=== PATIENT | male | born 1985 | race Caucasian/White ===

== ENCOUNTER 2020-12-29 10:48 | Emergency (ER) | payer SELFPAY ==
[~2020-12-29] VITALS: Ht 170.2 cm; Wt 65.8 kg
[2020-12-29] MEDS ORDERED: KETOROLAC TROMETHAMINE INJ 30 MG/ML VIAL IM ONE (11:30)
[2020-12-29] MEDS ORDERED: KETOROLAC TROMETHAMINE INJ 30 MG/ML VIAL ONE (11:32)
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
[2020-12-29 13:39] VITALS: BP 118/77
--- NOTE | 2020-12-29 13:39 | NUR ---
Patient discharged to home in stable condition. Written and verbal after care instructions given. Patient verbalizes understanding of instruction.
== END 2020-12-29 13:39 | disposition home or self-care (01) ==
LOC: ER 10:53
DX: R07.81 Pleurodynia (principal); J34.89 Other specified disorders of nose and nasal sinuses; M79.622 Pain in left upper arm; R51.9 Headache, unspecified; M54.2 Cervicalgia; R07.89 Other chest pain; V49.49XA Driver injured in collision with other motor vehicles in traffic accident, initial encounter; Y93.89 Activity, other specified; Y92.413 State road as the place of occurrence of the external cause; Y99.8 Other external cause status
CPT/HCPCS: 70450-TC; 70486-TC; 71100-TC; 72125-TC; J1885